=== PATIENT | female | born 1960 | race Caucasian/White ===

== ENCOUNTER 2022-06-13 09:52 | Inpatient (IN) | payer OTHER ==
[2022-06-13 10:17] VITALS: BMI 27.9
[2022-06-13] MEDS ORDERED: MAG HYDROX/AL HYDROX/SIMETH 30 ML UNIT-DOSE CUP PO ONE (11:31)
[2022-06-13] MEDS ORDERED: FAMOTIDINE 20 MG/50 ML IVPB 20 MG/50 ML MG IVPB ONE ×2 (11:31→11:55)
[2022-06-13] MEDS ORDERED: ONDANSETRON 4 MG/2 ML VIAL IVPUSH ONE (11:31)
[2022-06-13] MEDS ORDERED: MAG HYDROX/AL HYDROX/SIMETH 30 ML UNIT-DOSE CUP ONE (11:54)
[2022-06-13] MEDS ORDERED: ONDANSETRON 4 MG/2 ML VIAL ONE (11:55)
[2022-06-13 12:08] LABS: ALBUMIN 3.7 g/dl (3.4-5.0); BLOOD UREA NITROGEN 18.7 mg/dL (7-18); CALCIUM 9.9 mg/dL (8.5-10.1); MAGNESIUM 2.1 mg/dL (1.8-2.4)
[2022-06-13 12:11] LABS: CREATININE 0.5 mg/dL (0.55-1.3)
[2022-06-13 12:12] LABS: BILIRUBIN,TOTAL 0.6 mg/dL (0.2-1)
[2022-06-13 12:13] LABS: TOT PROT 7.2 g/dl (6.4-8.2)
[2022-06-13 12:41] LABS: BASO % 0.7 % (0-2.0); EOS % 0.2 % (0-4.5); HEMATOCRIT 33.4 % (32.4-45.2); HEMOGLOBIN 10.2 GM/dL (10.7-15.3); LYMPH % 28.3 % (8-40); MCHC 30.7 g/dl (32.0-36.0); MEAN CELL VOLUME 59.7 fl (80-96); MEAN PLT VOLUME 8.4 fl (7.5-11.1); MONO % 8.5 % (3.8-10.2); NEUT % 62.3 % (42.8-82.8); PLATELET COUNT 431 10^3/uL (134-434); RBC 5.59 M/mm3 (3.60-5.2); RDW 18.4 % (11.6-15.6)
[2022-06-13 12:44] LABS: MCH 18.3 pg (25.7-33.7)
[2022-06-13] MEDS ORDERED: SODIUM CHLORIDE 0.9% 500 ML INFUS.BAG IV ONE (16:03)
[2022-06-13] MEDS ORDERED: ONDANSETRON 4 MG/2 ML VIAL IVPUSH PRN (17:20)
[2022-06-13] MEDS ORDERED: DEXTROSE 5%-LACTATED RINGERS 1,000 ML IV SCH (17:30)
[2022-06-13] MEDS ORDERED: LIDOCAINE HCL 2% JELLY 10 ML CARTRIDGE ONE (18:19)
[2022-06-13 18:37] LABS: ANISOCYTOSIS 2+; MACROCYTOSIS 0; OVALOCYTE 1+; PLATELET ESTIMATE NORMAL
[2022-06-13] MEDS: HEPARIN NA (PORCINE) 5,000 UNITS/ML 1ML VIAL SQ SCH (20:59)
[2022-06-13] MEDS: DEXTROSE 5%-LACTATED RINGERS 1,000 ML IV SCH (20:59)
[2022-06-14] MEDS: DEXTROSE 5%-LACTATED RINGERS 1,000 ML IV SCH ×2 (06:20→10:47)
[2022-06-14] MEDS: HEPARIN NA (PORCINE) 5,000 UNITS/ML 1ML VIAL SQ SCH ×2 (06:20→14:55)
[2022-06-14 08:12] LABS: BASO % 0.5 % (0-2.0); EOS % 0.7 % (0-4.5); HEMATOCRIT 28.2 % (32.4-45.2); HEMOGLOBIN 8.9 GM/dL (10.7-15.3); LYMPH % 26.1 % (8-40); MCH 18.7 pg (25.7-33.7); MCHC 31.6 g/dl (32.0-36.0); MEAN CELL VOLUME 59.3 fl (80-96); MEAN PLT VOLUME 8.7 fl (7.5-11.1); MONO % 10.2 % (3.8-10.2); NEUT % 62.5 % (42.8-82.8); PLATELET COUNT 363 10^3/uL (134-434); RBC 4.76 M/mm3 (3.60-5.2); RDW 18.2 % (11.6-15.6); WHITE BLOOD COUNT 7.1 K/mm3 (4.0-10.0)
[2022-06-14 08:13] LABS: INR 1.16 (0.83-1.09); PROTHROMBIN TIME (PATIENT) 13.4 SEC (9.7-13.0)
[2022-06-14 08:15] LABS: ACTIVATED PTT 31.3 SECONDS (25.2-36.5)
[2022-06-14 08:23] LABS: POTASSIUM 3.8 mmol/L (3.5-5.1)
[2022-06-14 08:25] LABS: CALCIUM 8.5 mg/dL (8.5-10.1)
[2022-06-14 08:27] LABS: BLOOD UREA NITROGEN 12.9 mg/dL (7-18)
[2022-06-14 08:30] LABS: CREATININE 0.5 mg/dL (0.55-1.3); PHOSPHOROUS 3.5 mg/dL (2.5-4.9)
[2022-06-14 08:31] LABS: BILIRUBIN,TOTAL 0.4 mg/dL (0.2-1); TOT PROT 5.8 g/dl (6.4-8.2)
[2022-06-14] MEDS: LEVOTHYROXINE SODIUM 100 MCG 5 ML VIAL IVPUSH SCH (09:26)
[2022-06-14] MEDS ORDERED: PHYTONADIONE 10 MG/1 ML AMP IVPB ONE (10:04)
[2022-06-14] MEDS ORDERED: IRON SUCROSE INJECTION 300 MG in SODIUM CHLORIDE 235 ML IVPB ONE (12:30)
[2022-06-14] MEDS ORDERED: metroNIDAZOLE 250 MG TABLET PO SCH (13:00)
[2022-06-14] MEDS ORDERED: metroNIDAZOLE 500 MG TABLET PO SCH (13:00)
[2022-06-14] MEDS: metroNIDAZOLE 500 MG TABLET PO SCH ×2 (13:22→22:55)
[2022-06-14] MEDS: NEOMYCIN SO4 500 MG TABLET PO SCH ×3 (13:22→22:56)
[2022-06-14] MEDS ORDERED: metroNIDAZOLE 500 MG TABLET PO ONE (15:00)
[2022-06-14] MEDS: ACETAMINOPHEN 1000 MG/100 ML BAG IVPB PRN (17:22)
[2022-06-15] MEDS: DEXTROSE 5%-LACTATED RINGERS 1,000 ML IV SCH ×2 (02:11→10:50)
[2022-06-15 07:10] LABS: BASO % 0.5 % (0-2.0); HEMATOCRIT 27.1 % (32.4-45.2); HEMOGLOBIN 8.7 GM/dL (10.7-15.3); INR 1.24 (0.83-1.09); LYMPH % 22.1 % (8-40); MCHC 32.2 g/dl (32.0-36.0); MEAN CELL VOLUME 59.2 fl (80-96); MONO % 10.9 % (3.8-10.2); NEUT % 65.5 % (42.8-82.8); PLATELET COUNT 312 10^3/uL (134-434); PROTHROMBIN TIME (PATIENT) 14.3 SEC (9.7-13.0); RBC 4.59 M/mm3 (3.60-5.2); RDW 18.5 % (11.6-15.6); WHITE BLOOD COUNT 8.4 K/mm3 (4.0-10.0)
[2022-06-15 07:18] LABS: POTASSIUM 3.2 mmol/L (3.5-5.1)
[2022-06-15 07:22] LABS: CALCIUM 8.8 mg/dL (8.5-10.1)
[2022-06-15 07:24] LABS: ALBUMIN 2.9 g/dl (3.4-5.0); BLOOD UREA NITROGEN 6.7 mg/dL (7-18); MAGNESIUM 1.7 mg/dL (1.8-2.4)
[2022-06-15 07:26] LABS: CREATININE 0.5 mg/dL (0.55-1.3); PHOSPHOROUS 3.3 mg/dL (2.5-4.9)
[2022-06-15 07:28] LABS: BILIRUBIN,TOTAL 0.3 mg/dL (0.2-1)
[2022-06-15 07:29] LABS: TOT PROT 5.6 g/dl (6.4-8.2)
[2022-06-15] MEDS ORDERED: MAGNESIUM SULF 50% (8.12 MEQ/2 ML-1 GM VIAL) IVPB ONE (07:39)
[2022-06-15] MEDS: KCL 10 MEQ IVPB 10 MEQ/100 ML INFUS.BAG IVPB SCH ×2 (09:22→10:47)
[2022-06-15] MEDS: LEVOTHYROXINE SODIUM 100 MCG 5 ML VIAL IVPUSH SCH (10:04)
[2022-06-15] MEDS ORDERED: PHYTONADIONE 10 MG/1 ML AMP IVPB ONE (10:06)
[2022-06-15] MEDS ORDERED: BUPIVACAINE HCL/PF 0.25% (2.5MG/ML) 10 ML VIAL ONE (11:39)
[2022-06-15] MEDS ORDERED: HEPARIN NA (PORCINE) 5,000 UNITS/ML 1ML VIAL ONE (11:47)
[2022-06-15] MEDS ORDERED: PROPOFOL 20 ML ONE (12:21)
[2022-06-15] MEDS ORDERED: LIDOCAINE HCL/PF 2% SDV 5ML VIAL ONE (12:21)
[2022-06-15] MEDS ORDERED: ROCURONIUM BROMIDE 50 MG/5 ML SYRINGE ONE ×2 (12:21→14:17)
[2022-06-15] MEDS ORDERED: SUCCINYLCHOLINE CHLORIDE 200 MG/10 ML SYRINGE ONE (12:22)
[2022-06-15] MEDS ORDERED: MIDAZOLAM HCL 2 MG/2 ML SINGLE DOSE VIAL ONE ×2 (12:22→13:17)
[2022-06-15] MEDS ORDERED: cefOXitin SODIUM 2 GM VIAL (RESTRICTED TO ID) IVPB ONE ×2 (13:13→13:55)
[2022-06-15] MEDS ORDERED: HEPARIN NA (PORCINE) 5,000 UNITS/ML 1ML VIAL SQ ONE (13:45)
[2022-06-15] MEDS ORDERED: SUGAMMADEX SODIUM 200 MG/2 ML VIAL ONE (13:58)
[2022-06-15] MEDS ORDERED: BUPIVACAINE HCL/PF 0.25% (2.5MG/ML) 10 ML VIAL IJ ONE (14:06)
[2022-06-15] MEDS ORDERED: DEXAMETHASONE SOD PHOSPHATE 4 MG/1 ML VIAL ONE (14:20)
[2022-06-15] MEDS ORDERED: ALBUMIN HUMAN 5% 500 ML IV SOLUTION IV ONE (15:00)
[2022-06-15] MEDS ORDERED: HYDROmorphone HCl 2 MG/ML VIAL ONE (15:26)
[2022-06-15] MEDS ORDERED: ONDANSETRON 4 MG/2 ML VIAL IVPUSH PRN ×2 (16:13→16:17)
[2022-06-15] MEDS ORDERED: ACETAMINOPHEN 325 MG TABLET (FP) PO PRN (16:13)
[2022-06-15] MEDS ORDERED: LACTATED RINGERS SOLUTION 1,000 ML IV SCH (16:15)
[2022-06-15] MEDS ORDERED: HYDROmorphone *PCA* 10MG/50ML DISP.SYRIN PCA SCH (16:15)
[2022-06-15] MEDS: ACETAMINOPHEN 1000 MG/100 ML BAG IVPB PRN (16:45)
[2022-06-15] MEDS ORDERED: ACETAMINOPHEN INJECTION 100 ML IVPB ONE (16:50)
[2022-06-15] MEDS ORDERED: HYDROmorphone *PCA* 10MG/50ML DISP.SYRIN ONE (17:32)
[2022-06-15 17:43] LABS: POTASSIUM 4.1 mmol/L (3.5-5.1)
[2022-06-15 17:44] LABS: CALCIUM 8.4 mg/dL (8.5-10.1)
[2022-06-15 17:45] LABS: BLOOD UREA NITROGEN 4.8 mg/dL (7-18)
[2022-06-15 17:48] LABS: CREATININE 0.7 mg/dL (0.55-1.3)
[2022-06-15] MEDS ORDERED: ONDANSETRON 4 MG/2 ML VIAL ONE (17:49)
[2022-06-15] MEDS: LACTATED RINGERS SOLUTION 1,000 ML IV SCH (18:30)
[2022-06-15] MEDS: ACETAMINOPHEN 1000 MG/100 ML BAG IVPB SCH ×2 (20:19→23:01)
[2022-06-15] MEDS: HEPARIN NA (PORCINE) 5,000 UNITS/ML 1ML VIAL SQ SCH (22:58)
[2022-06-15] MEDS: CEFOXITIN SODIUM 1 GM in DEXTROSE 5%-WATER - 100 ML IVPB SCH (23:04)
[2022-06-16] MEDS: CEFOXITIN SODIUM 1 GM in DEXTROSE 5%-WATER - 100 ML IVPB SCH (02:53)
[2022-06-16] MEDS: ACETAMINOPHEN 1000 MG/100 ML BAG IVPB SCH ×4 (04:50→22:26)
[2022-06-16 07:57] LABS: POTASSIUM 4.2 mmol/L (3.5-5.1)
[2022-06-16 08:11] LABS: CALCIUM 8.9 mg/dL (8.5-10.1)
[2022-06-16 08:12] LABS: ALBUMIN 2.6 g/dl (3.4-5.0); BASO % 0.1 % (0-2.0); BLOOD UREA NITROGEN 5.1 mg/dL (7-18); EOS % 0.1 % (0-4.5); HEMATOCRIT 27.2 % (32.4-45.2); HEMOGLOBIN 8.2 GM/dL (10.7-15.3); LYMPH % 14.5 % (8-40); MAGNESIUM 1.8 mg/dL (1.8-2.4); MCHC 30.3 g/dl (32.0-36.0); MEAN CELL VOLUME 59.5 fl (80-96); MEAN PLT VOLUME 8.6 fl (7.5-11.1); MONO % 4.4 % (3.8-10.2); NEUT % 80.9 % (42.8-82.8); PLATELET COUNT 321 10^3/uL (134-434); RBC 4.57 M/mm3 (3.60-5.2); RDW 18.3 % (11.6-15.6)
[2022-06-16 08:16] LABS: BILIRUBIN,TOTAL 0.5 mg/dL (0.2-1); CREATININE 0.5 mg/dL (0.55-1.3); PHOSPHOROUS 4.7 mg/dL (2.5-4.9); TOT PROT 4.9 g/dl (6.4-8.2)
[2022-06-16] MEDS: HEPARIN NA (PORCINE) 5,000 UNITS/ML 1ML VIAL SQ SCH ×2 (09:55→22:24)
[2022-06-16] MEDS: LEVOTHYROXINE SODIUM 100 MCG 5 ML VIAL IVPUSH SCH (09:57)
[2022-06-16] MEDS: LACTATED RINGERS SOLUTION 1,000 ML IV SCH ×2 (12:36→16:47)
[2022-06-16] MEDS ORDERED: IBUPROFEN 800 MG/8 ML IJ IVPB PRN (14:56)
[2022-06-16] MEDS ORDERED: oxyCODONE HCL 5 MG TABLET PO PRN (14:56)
[2022-06-17 08:17] LABS: BASO % 0.3 % (0-2.0); EOS % 0.8 % (0-4.5); HEMATOCRIT 30.2 % (32.4-45.2); HEMOGLOBIN 9.4 GM/dL (10.7-15.3); LYMPH % 10.4 % (8-40); MEAN CELL VOLUME 60.1 fl (80-96); MONO % 4.4 % (3.8-10.2); NEUT % 84.1 % (42.8-82.8); PLATELET COUNT 354 10^3/uL (134-434); RBC 5.01 M/mm3 (3.60-5.2); RDW 18.8 % (11.6-15.6); WHITE BLOOD COUNT 16.6 K/mm3 (4.0-10.0)
[2022-06-17 08:21] LABS: MCH 18.7 pg (25.7-33.7)
[2022-06-17 08:35] LABS: POTASSIUM 3.9 mmol/L (3.5-5.1)
[2022-06-17 08:40] LABS: BLOOD UREA NITROGEN 6.1 mg/dL (7-18); CALCIUM 8.8 mg/dL (8.5-10.1)
[2022-06-17 08:42] LABS: CREATININE 0.4 mg/dL (0.55-1.3); PHOSPHOROUS 3.2 mg/dL (2.5-4.9)
[2022-06-17] MEDS ORDERED: ACETAMINOPHEN 1000 MG/100 ML BAG IVPB PRN (08:57)
[2022-06-17 10:13] LABS: ANISOCYTOSIS 3+; MACROCYTOSIS 0; OVALOCYTE 1+; TARGET CELLS 1+
[2022-06-17] MEDS: LEVOTHYROXINE SODIUM 100 MCG 5 ML VIAL IVPUSH SCH (11:43)
[2022-06-17] MEDS: HEPARIN NA (PORCINE) 5,000 UNITS/ML 1ML VIAL SQ SCH ×2 (15:37→22:01)
[2022-06-18] MEDS: HEPARIN NA (PORCINE) 5,000 UNITS/ML 1ML VIAL SQ SCH ×3 (05:33→21:05)
[2022-06-18] MEDS: LEVOTHYROXINE NA 100 MCG TABLET (FP) PO SCH (06:28)
[2022-06-18 08:58] LABS: BASO % 0.5 % (0-2.0); EOS % 1.7 % (0-4.5); HEMATOCRIT 29.3 % (32.4-45.2); LYMPH % 16.3 % (8-40); MCHC 30.7 g/dl (32.0-36.0); MEAN CELL VOLUME 60.3 fl (80-96); MEAN PLT VOLUME 8.4 fl (7.5-11.1); NEUT % 77.5 % (42.8-82.8); PLATELET COUNT 401 10^3/uL (134-434); RBC 4.86 M/mm3 (3.60-5.2); RDW 18.4 % (11.6-15.6); WHITE BLOOD COUNT 11.9 K/mm3 (4.0-10.0)
[2022-06-18 09:00] LABS: MCH 18.5 pg (25.7-33.7)
[2022-06-18 09:14] LABS: POTASSIUM 4.3 mmol/L (3.5-5.1)
[2022-06-18 09:18] LABS: BLOOD UREA NITROGEN 4.9 mg/dL (7-18)
[2022-06-18 09:22] LABS: CALCIUM 8.7 mg/dL (8.5-10.1); CREATININE 0.4 mg/dL (0.55-1.3); PHOSPHOROUS 2.7 mg/dL (2.5-4.9)
[2022-06-19] MEDS: HEPARIN NA (PORCINE) 5,000 UNITS/ML 1ML VIAL SQ SCH ×3 (06:34→21:10)
[2022-06-19] MEDS: LEVOTHYROXINE NA 100 MCG TABLET (FP) PO SCH (06:34)
[2022-06-19] MEDS ORDERED: ACETAMINOPHEN 325 MG TABLET (FP) PO PRN (08:20)
[2022-06-19 08:41] LABS: BASO % 0.3 % (0-2.0); EOS % 3.2 % (0-4.5); HEMATOCRIT 29.8 % (32.4-45.2); HEMOGLOBIN 9.3 GM/dL (10.7-15.3); LYMPH % 20.7 % (8-40); MCHC 31.1 g/dl (32.0-36.0); MEAN PLT VOLUME 7.8 fl (7.5-11.1); MONO % 5.2 % (3.8-10.2); NEUT % 70.6 % (42.8-82.8); PLATELET COUNT 442 10^3/uL (134-434); RBC 4.96 M/mm3 (3.60-5.2); RDW 18.2 % (11.6-15.6); WHITE BLOOD COUNT 11.7 K/mm3 (4.0-10.0)
[2022-06-19 08:43] LABS: MCH 18.6 pg (25.7-33.7)
[2022-06-19 09:02] LABS: POTASSIUM 4.5 mmol/L (3.5-5.1)
[2022-06-19 09:04] LABS: BLOOD UREA NITROGEN 3.4 mg/dL (7-18)
[2022-06-19 09:07] LABS: CREATININE 0.5 mg/dL (0.55-1.3); PHOSPHOROUS 3.1 mg/dL (2.5-4.9)
[2022-06-19 09:09] LABS: BILIRUBIN,TOTAL 0.2 mg/dL (0.2-1); TOT PROT 6.2 g/dl (6.4-8.2)
[2022-06-19] MEDS ORDERED: IBUPROFEN 800 MG/8 ML IJ IVPB PRN (11:10)
[2022-06-19 12:05] VITALS: RESP 18
[2022-06-20] MEDS: HEPARIN NA (PORCINE) 5,000 UNITS/ML 1ML VIAL SQ SCH ×2 (07:01→16:17)
[2022-06-20] MEDS: LEVOTHYROXINE NA 100 MCG TABLET (FP) PO SCH (07:18)
[2022-06-20 08:05] LABS: POTASSIUM 4.2 mmol/L (3.5-5.1)
[2022-06-20 08:07] LABS: BLOOD UREA NITROGEN 5.1 mg/dL (7-18); CALCIUM 9.3 mg/dL (8.5-10.1); MAGNESIUM 2.2 mg/dL (1.8-2.4)
[2022-06-20 08:09] LABS: BASO % 0.9 % (0-2.0); EOS % 3.8 % (0-4.5); HEMATOCRIT 29.1 % (32.4-45.2); HEMOGLOBIN 9.1 GM/dL (10.7-15.3); LYMPH % 27.3 % (8-40); MCHC 31.3 g/dl (32.0-36.0); MEAN CELL VOLUME 60.1 fl (80-96); MEAN PLT VOLUME 7.6 fl (7.5-11.1); MONO % 7.8 % (3.8-10.2); NEUT % 60.2 % (42.8-82.8); PLATELET COUNT 466 10^3/uL (134-434); RBC 4.84 M/mm3 (3.60-5.2); RDW 18.6 % (11.6-15.6); WHITE BLOOD COUNT 8.7 K/mm3 (4.0-10.0)
[2022-06-20 08:10] LABS: CREATININE 0.6 mg/dL (0.55-1.3)
[2022-06-20 08:12] LABS: BILIRUBIN,TOTAL 0.2 mg/dL (0.2-1); MCH 18.8 pg (25.7-33.7); TOT PROT 6.4 g/dl (6.4-8.2)
[2022-06-20 09:07] LABS: ANISOCYTOSIS 3+
[2022-06-20 14:40] VITALS: BP 97/76; PULSE 105; TEMP 97.8
== END 2022-06-20 14:44 | disposition home or self-care (01) | DRG 330 ==
LOC: JER 09:52 → JERBED 14:43 → J7W 20:50 → J8W 06-15 18:41
PROVIDERS: ADMIT Internal Medicine; ATTEND Internal Medicine
PROC: 0D1E0Z4 Bypass Large Intestine to Cutaneous, Open Approach (ICD-10-PCS; 2022-06-15)
PROC: 0DTF0ZZ Resection of Right Large Intestine, Open Approach (ICD-10-PCS; principal; 2022-06-15 12:30)
DX: C18.0 Malignant neoplasm of cecum (principal); K56.699 Other intestinal obstruction unspecified as to partial versus complete obstruction; C78.6 Secondary malignant neoplasm of retroperitoneum and peritoneum; E03.9 Hypothyroidism, unspecified; C77.2 Secondary and unspecified malignant neoplasm of intra-abdominal lymph nodes; E78.5 Hyperlipidemia, unspecified; K59.00 Constipation, unspecified; K76.0 Fatty (change of) liver, not elsewhere classified; R74.01 Elevation of levels of liver transaminase levels; K57.90 Diverticulosis of intestine, part unspecified, without perforation or abscess without bleeding; D50.9 Iron deficiency anemia, unspecified; R63.0 Anorexia; D72.829 Elevated white blood cell count, unspecified; E04.2 Nontoxic multinodular goiter; R63.4 Abnormal weight loss; Z68.27 Body mass index [BMI] 27.0-27.9, adult; Z80.0 Family history of malignant neoplasm of digestive organs
CPT/HCPCS: 0241U-QW; 36415; 71045-TC-FY; 71046-TC-FY; 71260-TC; 74019-TC-FY; 74177-TC; 80048; 80053; 80307; 82378; 82550; 82728; 83540; 83550; 83690; 83735; 84100; 84436; 84443; 84484; 85025; 85610; 85730; 86140; 86705; 86708; 86803; 86850; 86900; 86901; 87340; 87517; 88309-TC; 93005; 93010; 94010; 94760; 97116-GP; 97162-GP; 99285-25; J1644; J1756; Q9967

== ENCOUNTER 2023-12-13 04:30 | Day surgery (SDC) | payer OTHER ==
[2023-12-12 10:31] VITALS: BMI 31.2
[2023-12-13 10:00] VITALS: TEMP 97
[2023-12-13 10:46] VITALS: RESP 18
[2023-12-13 10:47] VITALS: BP 83/62; PULSE 68
== END 2023-12-13 10:40 | disposition home or self-care (01) ==
LOC: JASU-ENDO 04:30
PROVIDERS: ATTEND Internal Medicine Gastroenterology
PROC: 0DBL8ZX Excision of Transverse Colon, Via Natural or Artificial Opening Endoscopic, Diagnostic (ICD-10-PCS; 2023-12-13)
PROC: 0DBM8ZX Excision of Descending Colon, Via Natural or Artificial Opening Endoscopic, Diagnostic (ICD-10-PCS; principal; 2023-12-13 10:00)
DX: Z12.11 Encounter for screening for malignant neoplasm of colon (principal); K63.5 Polyp of colon; K57.30 Diverticulosis of large intestine without perforation or abscess without bleeding; Z85.038 Personal history of other malignant neoplasm of large intestine; Z98.0 Intestinal bypass and anastomosis status
CPT/HCPCS: 88305-TC